=== PATIENT | female | born 1990 | race Caucasian/White ===

== ENCOUNTER 2021-08-17 11:41 | Outpatient (CLI) | payer BC ==
[~2021-08-17] VITALS: Ht 167.6 cm; Wt 68.5 kg
[2021-08-17 12:55] LABS: HEMOGLOBIN 12.1 gm/dl (12.3-15.3); RED BLOOD COUNT 4.15 M/UL (4.00-5.10); WHITE BLOOD COUNT 7.8 K/UL (4.5-11.0)
[2021-08-17 13:17] LABS: BUN/CREATININE RATIO 11 (0-10)
== END 2021-08-17 20:50 | disposition home or self-care (01) ==
LOC: GENOP 11:41
PROVIDERS: Obstetrics & Gynecology
DX: O21.0 Mild hyperemesis gravidarum (principal); Z88.0 Allergy status to penicillin; Z3A.10 10 weeks gestation of pregnancy
CPT/HCPCS: 36415; 80053; 81001; 82009; 82150; 83690; 85025; 96360; 96361; 96368; J1720; J2550; J7120

== ENCOUNTER 2021-08-22 11:48 | Observation (INO) | payer BC ==
[2021-08-22 14:05] LABS: HEMOGLOBIN 13.4 gm/dl (12.3-15.3); RED BLOOD COUNT 4.58 M/UL (4.00-5.10); WHITE BLOOD COUNT 8.2 K/UL (4.5-11.0)
[2021-08-22 14:34] LABS: BUN/CREATININE RATIO 12 (0-10)
== END 2021-08-24 09:00 | disposition home or self-care (01) ==
LOC: GENOP 11:48 → OB 22:30
PROVIDERS: ADMIT Obstetrics & Gynecology
DX: O21.1 Hyperemesis gravidarum with metabolic disturbance (principal); O99.891 Other specified diseases and conditions complicating pregnancy; R63.4 Abnormal weight loss; R63.0 Anorexia; O23.41 Unspecified infection of urinary tract in pregnancy, first trimester; N39.0 Urinary tract infection, site not specified; O25.11 Malnutrition in pregnancy, first trimester; Z3A.11 11 weeks gestation of pregnancy; Z88.0 Allergy status to penicillin
CPT/HCPCS: 36415; 80053; 81001; 82009; 82150; 83690; 85025; 87086; 96360; 96361; 96365; 96366; 96367; 96374; 96375; 96376; C9113; G0378; J0696; J1720; J2405; J2550; J3480; J7120

== ENCOUNTER 2022-01-01 19:10 | Outpatient (CLI) | payer BC ==
[2022-01-01 20:33] LABS: RED BLOOD COUNT 3.63 M/UL (4.00-5.10); WHITE BLOOD COUNT 11.5 K/UL (4.5-11.0)
== END 2022-01-01 21:32 | disposition home or self-care (01) ==
LOC: GENOP 19:10
PROVIDERS: Obstetrics & Gynecology
DX: O16.3 Unspecified maternal hypertension, third trimester (principal); O26.893 Other specified pregnancy related conditions, third trimester; R25.2 Cramp and spasm; Z3A.30 30 weeks gestation of pregnancy
CPT/HCPCS: 36415; 81001; 82247; 82248; 82565; 82570; 84112; 84156; 84450; 84460; 84550; 85025; 85379; 85384; 85610; 85730; G0463

== ENCOUNTER 2022-02-06 12:36 | Outpatient (CLI) | payer BC ==
[2022-02-06 14:04] LABS: HEMOGLOBIN 10.3 gm/dl (12.3-15.3); RED BLOOD COUNT 3.97 M/UL (4.00-5.10); WHITE BLOOD COUNT 8.9 K/UL (4.5-11.0)
[2022-02-06 14:23] LABS: BUN/CREATININE RATIO 12 (0-10)
== END 2022-02-06 15:43 | disposition home or self-care (01) ==
LOC: GENOP 12:36
PROVIDERS: Obstetrics & Gynecology
DX: O24.415 Gestational diabetes mellitus in pregnancy, controlled by oral hypoglycemic drugs (principal); Z3A.35 35 weeks gestation of pregnancy
CPT/HCPCS: 36415; 80053; 81001; 82570; 82962; 84156; 84550; 85025

== ENCOUNTER 2022-02-09 14:14 | Emergency (ER) | payer BC ==
[2022-02-09 18:16] LABS: HEMOGLOBIN 11.3 gm/dl (12.3-15.3); RED BLOOD COUNT 4.35 M/UL (4.00-5.10); WHITE BLOOD COUNT 13.1 K/UL (4.5-11.0)
[2022-02-09 18:37] LABS: BUN/CREATININE RATIO 12 (0-10)
== END 2022-02-09 19:12 | disposition home or self-care (01) ==
LOC: ER1 14:14
PROVIDERS: Preventive Medicine Occupational Medicine
DX: R11.2 Nausea with vomiting, unspecified (principal); R19.7 Diarrhea, unspecified
CPT/HCPCS: 80053; 81001; 85025; 87086; 99284

== ENCOUNTER 2022-02-09 19:56 | Outpatient (CLI) | payer BC | END 2022-02-09 21:40 | disposition home or self-care (01) | LOC: GENOP 19:56 → OB 19:57 → GENOP 21:40 | DX: O47.9 False labor, unspecified (principal) | CPT/HCPCS: 84112; 96360; 96366 ==

== ENCOUNTER 2022-02-16 18:02 | Outpatient (CLI) | payer BC | END 2022-02-16 21:14 | disposition home or self-care (01) | LOC: GENOP 18:02 | DX: O21.2 Late vomiting of pregnancy (principal); O99.891 Other specified diseases and conditions complicating pregnancy; R19.7 Diarrhea, unspecified; O24.415 Gestational diabetes mellitus in pregnancy, controlled by oral hypoglycemic drugs; Z3A.36 36 weeks gestation of pregnancy | CPT/HCPCS: 81001; 96360; 96361; 96367; J2550 ==

== ENCOUNTER → 2022-02-17 | Outpatient (CLI) | payer BC ==
[~2022-02-17] MED LIST: COLACE 100MG C100 MG PO; HEMOCYTE324 MG PO; HYDROCODON-ACE1 EAC2 PO; IBUPROFEN800 MG PO; LABETALOL HCL100 MG PO
[2022-02-17 15:04] LABS: HEMOGLOBIN 10.3 gm/dl (12.3-15.3); RED BLOOD COUNT 4.05 M/UL (4.00-5.10); WHITE BLOOD COUNT 7.1 K/UL (4.5-11.0)
== END ==
LOC: GENOP 13:38
PROVIDERS: Obstetrics & Gynecology
DX: Z01.812 Encounter for preprocedural laboratory examination (principal)
CPT/HCPCS: 36415; 81001; 85025; C9113; J1580

== ENCOUNTER 2022-02-18 05:26 | Inpatient (IN) | payer BC ==
[2022-02-18] MEDS ORDERED: COLACE 100MG C100 MG PO (09:15)
[2022-02-18] MEDS ORDERED: HYDROCODON-ACE1 EAC2 PO (09:15)
[2022-02-18] MEDS ORDERED: IBUPROFEN800 MG PO (09:15)
[2022-02-18] MEDS ORDERED: HEMOCYTE324 MG PO (09:17)
[2022-02-19 03:01] LABS: HEMOGLOBIN 8.5 gm/dl (12.3-15.3)
[2022-02-20] MEDS ORDERED: LABETALOL HCL100 MG PO (14:09)
== END 2022-02-20 18:07 | disposition home or self-care (01) | DRG 787 ==
LOC: OB 05:26
PROVIDERS: ADMIT Obstetrics & Gynecology
PROC: 10D00Z1 Extraction of Products of Conception, Low, Open Approach (ICD-10-PCS; principal; 2022-02-18 08:07)
DX: O13.4 Gestational [pregnancy-induced] hypertension without significant proteinuria, complicating childbirth (principal); D62 Acute posthemorrhagic anemia; O24.425 Gestational diabetes mellitus in childbirth, controlled by oral hypoglycemic drugs; O34.211 Maternal care for low transverse scar from previous cesarean delivery; O36.63X0 Maternal care for excessive fetal growth, third trimester, not applicable or unspecified; O99.02 Anemia complicating childbirth; Z80.3 Family history of malignant neoplasm of breast; Z37.0 Single live birth; Z3A.37 37 weeks gestation of pregnancy; Z82.49 Family history of ischemic heart disease and other diseases of the circulatory system; Z83.2 Family history of diseases of the blood and blood-forming organs and certain disorders involving the immune mechanism; Z83.438 Family history of other disorder of lipoprotein metabolism and other lipidemia
CPT/HCPCS: 36415; 82800; 82962; 85014; 85018; J1170; J1200; J1885; J2405; J2590